=== PATIENT | female | born 1990 | race African-American/Black ===

== ENCOUNTER 2016-10-25 18:09 | Emergency (ER) | payer OTHER ==
[~2016-10-25 18:09] MED LIST: ACET50TA PO; DIBU1OIN TOP; DOCU10CA PO; IBUP80TA PO; PRENTAB8 PO; UNISOM PO
[2016-10-25] MEDS ORDERED: dexameTHASONE 4 MG/ML 1ML VIAL (J1100) As Ordered ONE (18:50)
[2016-10-25] MEDS ORDERED: METOCLOPRAMIDE INJ 10MG/2ML VIAL (J2765) As Ordered ONE (18:50)
[2016-10-25] MEDS ORDERED: diphenhydrAMINE INJ 50MG/ML VIAL (J1200) As Ordered ONE (18:50)
[2016-10-25 19:02] LABS: BASO % 0.3 % (0.0-1.0); EOS # 0.1 K/mm3 (0.0-0.50); LARGE UNSTAINED CELL # 0.1 K/mm3 (0.0-0.4); LARGE UNSTAINED CELL % 1.3 % (0.0-4.0); LYMPH # 1.2 K/mm3 (1.5-6.5); LYMPH % 15.2 % (24.0-44.0); MEAN CORPUSCULAR HEMOGLOBIN 27.2 pg (27.0-33.0); MEAN CORPUSCULAR HGB CONC 33.4 g/dl (32.0-36.5); MEAN CORPUSCULAR VOLUME 81.3 fl (80.0-96.0); MONO # 0.4 K/mm3 (0.0-0.8); MONO % 5.5 % (0.0-5.0); NEUTROPHILS # 5.9 K/mm3 (1.8-7.7); NEUTROPHILS % 76.8 % (36.0-66.0); PLATELET COUNT, AUTOMATED 309 k/mm3 (150-450); RED CELL DISTRIBUTION WIDTH 12.4 % (11.5-14.5); WHITE BLOOD COUNT 7.7 K/mm3 (4.0-10.0)
[2016-10-25 19:19] LABS: ANION GAP 8 MEQ/L (8-16); BLOOD UREA NITROGEN 11 MG/DL (7-18); CALCIUM LEVEL 8.5 MG/DL (8.5-10.1); CARBON DIOXIDE LEVEL 29 MEQ/L (21-32); CHLORIDE LEVEL 102 MEQ/L (98-107); CREATININE FOR GFR 0.86 MG/DL (0.55-1.02); GLOMERULAR FILTRATION RATE > 60.0 (>60); GLUCOSE, FASTING 93 MG/DL (70-105); POTASSIUM SERUM 3.9 MEQ/L (3.5-5.1); SODIUM LEVEL 139 MEQ/L (136-145)
[2016-10-25 19:26] LABS: ERYTHROCYTE SEDIMENTATION RATE 11 mm/hr (0-20)
--- NOTE | 2016-10-25 19:40 | ECGEPIP ---
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
--- NOTE | 2016-10-25 20:10 | REPUSA ---
CT of the head Clinical history: Headache. Technique: Multiple axial CT images were obtained through the head without administration of contrast . Findings: The ventricles and sulci are symmetric bilaterally. There is no evidence of acute hemorrhag e or infarct. There is no midline shift, mass effect, or extra-axial fluid collection. The osseous st ructures are unremarkable. The visualized paranasal sinuses and mastoid air cells are clear. Impression: Negative study.
--- NOTE | 2016-10-25 20:38 | EDDOCDS ---
Physician Documentation [facility] Name: Argentina Camacho Age: 26 yrs Sex: Female : 1990 Arrival Date: 10/25/2016 Time: 18:09 Bed I4 / M4 Private MD: Disposition: 10/25/16 20:29 Discharged to Home/Self Care. Impression: Headache, Dizziness and giddiness, Nausea. - Condition is Stable. - Discharge Instructions: Dizziness, General Headache Without Cause, Nausea, Adult. - Prescriptions for Reglan 10 mg Oral Tablet - take 1 tablet by ORAL route every 6 hours take 30 minutes before meals and at bedtime; 20 tablet. - Medication Reconciliation, Local Pharmacy Hours form. - Follow up: NOÉ Avila; When: Tomorrow; Reason: Recheck today's complaints, Continuance of care. - Problem is new. - Symptoms have improved. - Notes: USE MEDICATION INSTRUCTED, FOLLOW UP WITH YOUR DOCTOR TOMORROW, RETURN TO THE ER IF THE SYMPTOMS WORSEN OR BECOME CONCERNING Historical: - Allergies: Percocet (Anaphylaxis); PENICILLINS (Unknown); - Home Meds: 1. Tylenol 325 mg Oral tab every 4-6 hours - PMHx: none; - PSHx: none; - Social history: Smoking status: Patient states former smoker of tobacco. No barriers to communication noted, The patient speaks fluent Lao. - Family history: Not pertinent. - : The pt / caregiver states he / she is not on anticoagulants. Home medication list is obtained from the patient. - Exposure Risk Screening:: None identified. 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 6 in. (167.64 cm); Pain 7/10; 19:54 BP 122 / 86 Supine; Pulse 100; Resp 18; Pulse Ox 95% on R/A; jmb 19:54 BP 117 / 79 Sitting; Pulse 102; Resp 18; Pulse Ox 96% on R/A; jmb 19:54 BP 144 / 74 Standing; Pulse 104; Resp 18; Pulse Ox 96% on R/A; jmb 20:30 Temp 99.4(O); nb2 18:11 Body Mass Index 40.03 (112.49 kg, 167.64 cm) bnb MDM: 18:22 ECG WITH READING ER PHYS+CARDIAG ordered. EDMS 18:43 IV Saline Lock ordered. ck7 18:43 Metoclopramide 10 mg IV at 40 mg/hr once over 15 mins ordered. ck7 18:43 Dexamethasone 8 mg IV at bolus once ordered. ck7 18:43 diphenhydrAMINE 25 mg IVP once ordered. ck7 18:43 NS 0.9% 1000 ml IV at bolus once ordered. ck7 18:43 Orthostatic VS ordered. ck7 18:44 CT Head Without Contrast Ordered. EDMS 18:45 CBC with Diff Ordered. EDMS 18:45 MED Profile Ordered. EDMS 18:45 ESR Ordered. EDMS 18:45 CRP Ordered. EDMS 19:26 [facility] Payment Agreement was scanned into Go[employer] and attached to record. jp5 19:26 Financial registration complete. jp5 19:54 CBC with Diff Reviewed. ck7 19:54 CRP Reviewed. ck7 19:54 MED Profile Reviewed. ck7 19:54 ESR Reviewed. ck7 20:31 EKG-ADULT Reviewed. ck7 20:31 CT Head Without Contrast Reviewed. ck7 Administered Medications: 18:59 Drug: Metoclopramide 10 mg [metoclopramide 5 mg/mL injection solution] Route: IV; Rate: ck1 40 mg/hr; Infused Over: 15 mins; Site: right antecubital; 19:27 Follow up: Response: No Adverse Reaction [facility] 18:59 Drug: Dexamethasone 8 mg [dexamethasone 4 mg/mL injection solution] Route: IV; Rate: ck1 bolus; Site: right antecubital; 19:27 Follow up: Response: No Adverse Reaction [facility] 18:59 Drug: diphenhydrAMINE 25 mg [diphenhydramine 50 mg/mL injection solution (0.5 mL)] ck1 Route: IVP; Site: right antecubital; 19:27 Follow up: Response: No Adverse Reaction [facility] 18:59 Drug: NS 0.9% 1000 ml [sodium chloride 0.9 % intravenous solution] Route: IV; Rate: ck1 bolus; Site: right antecubital; Signatures: Dispatcher Med[employer] EDMS Mykesheridanj,Karen,RN RN rs3 Cabrera Sarabia, RPA-C RPA-Cck7 Red DeeRN RN Fifi Davalos jp5 Aubrie Collier RN ck1 The chart was reviewed and I authenticate all verbal orders and agree with the evaluation and treatment provided.Attachments: 19:26 [facility] Payment Agreement jp5 MTDD
--- NOTE | 2016-10-25 20:39 | EDDOCDS ---
Nurse's Notes [facility] Name: Kishan May Age: 26 yrs Sex: Female : 1990 Arrival Date: 10/25/2016 Time: 18:09 Bed I4 / M4 Private MD: Diagnosis: Headache;Dizziness and giddiness;Nausea Presentation: 10/25 18:15 Presenting complaint: Patient states: headache, lighthededness on and off for 2 months. rs3 Primary care provider ruled out miscarriage. was going for more tests. did not get to Wednesday's appt with primary. headache and vomiting is getting worse progressively. Adult Sepsis Screening: The patient does not have new or worsening altered mentation. Patient's respiratory rate is less than 22. Systolic blood pressure is greater than 100. Patient has a qSOFA score of 0- Negative Sepsis Screen. Suicide/Homicide risk assessment- the patient denies having any suicidal and/or homicidal ideations and does not present with any other emotional, behavioral or mental health complaints. Status: The patient is a dependent. Transition of care: patient was not received from another setting of care. 18:15 Acuity: DEB Level 3 rs3 18:15 Method Of Arrival: Walkin/Carried/Asstd rs3 Triage Assessment: 18:19 General: Appears in no apparent distress. Pain: Location: forehead. Pt Declines HIV rs3 testing. 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 Tylenol 325 mg Oral tab every 4-6 hours - PMHx: none; - PSHx: none; - Social history: Smoking status: Patient states former smoker of tobacco. No barriers to communication noted, The patient speaks fluent Greek. - Family history: Not pertinent. - : The pt / caregiver states he / she is not on anticoagulants. Home medication list is obtained from the patient. - Exposure Risk Screening:: None identified. Screenin:56 Screening information is obtained from the patient. Fall risk: No risks identified. jmb Fall risk: No risks identified. Assistance ADL's: requires no assistance with activities of daily living. Abuse/DV Screen: The patient / caregiver reports he/she is: not in a situation that causes fear, pain or injury. Nutritional screening: No deficits noted. home support is adequate. 20:35 Advance Directives: Currently, there is no health care proxy. There is no active DNR jmb order. There is no living will. There is no Power of Accreditation Manager. Assessment: 18:56 General: Appears in no apparent distress, Behavior is appropriate for age, cooperative. jmb Pain: Location: abdomen Pain currently is 6 out of 10 on a pain scale. Neurological: Level of Consciousness is awake, alert, obeys commands, Oriented to person, place, time, Speech is normal, Facial symmetry appears normal, Facial symmetry: tongue is midline. Cardiovascular: Capillary refill < 3 seconds Heart tones S1 S2 present Pulses are all present. Respiratory: Airway is patent Respiratory effort is even, unlabored, Respiratory pattern is regular, symmetrical, Breath sounds are diminished bilaterally. GI: Abdomen is obese, Bowel sounds present X 4 quads. hypoactive in right upper quadrant, left upper quadrant, right lower quadrant and left lower quadrant Abd is soft X 4 quads. Derm: Skin is pink, warm & dry. Musculoskeletal: Range of motion intact in all extremities. 19:23 General: Appears in no apparent distress, comfortable, Behavior is appropriate for age, jmb cooperative, Patient laying on stretcher, appears comfortable. NO voiced complaints at this time. Family at bedside. . Neurological: Level of Consciousness is awake, alert, obeys commands, Oriented to person, place, time. Respiratory: Airway is patent Respiratory effort is even, unlabored, Respiratory pattern is regular, symmetrical. 20:21 General: Appears in no apparent distress, comfortable, Behavior is appropriate for age, jmb cooperative. Neurological: Level of Consciousness is awake, alert, obeys commands, Oriented to person, place, time. Respiratory: Airway is patent Respiratory effort is even, unlabored, Respiratory pattern is regular, symmetrical. 20:35 General: Patient instructed on discharge instructions. Patient asked if there were any b questions regarding discharge, patient stated no. IV discontinued per hospital policy. Patient signed discharge instructions. Patient discharged in stable condition. . Vital Signs: 18:11 BP 171 / 86 RA Sitting (auto/lg); Pulse 115; Resp 18; Temp 97.6; Pulse Ox 98% on R/A; bnb Weight 112.49 kg; Height 5 ft. 6 in. (167.64 cm); Pain 7/10; 19:54 BP 122 / 86 Supine; Pulse 100; Resp 18; Pulse Ox 95% on R/A; jmb 19:54 BP 117 / 79 Sitting; Pulse 102; Resp 18; Pulse Ox 96% on R/A; jmb 19:54 BP 144 / 74 Standing; Pulse 104; Resp 18; Pulse Ox 96% on R/A; jmb 20:30 Temp 99.4(O); nb2 18:11 Body Mass Index 40.03 (112.49 kg, 167.64 cm) [facility] Vitals: 18:11 Log In Time: October 25, 2016 at 17:09. [facility] ED Course: 18:10 Patient visited by Dolores Dee PCA. bnb 18:10 Patient moved to Waiting bnb 18:14 Patient moved to Pre RCE bnb 18:19 Triage Initiated rs3 18:20 [facility] Sarab[facility] ck7 18:20 Patient moved to Triage 3 rs3 18:21 Alicia Sinha MD is Attending Physician. ck7 18:21 Patient visited by Cabrera Sarabia RPA-C. ck7 18:34 EKG done. (by ED staff). Reviewed by Cabrera BLACK. jjr 18:44 Patient moved to I4 / M4 ar3 18:56 The patient / caregiver is instructed regarding the plan of care and ED course. b 18:56 CRP Sent. b 18:56 ESR Sent. b 18:56 MED Profile Sent. b 18:56 CBC with Diff Sent. b 18:56 Inserted saline lock: 20 gauge in right antecubital area and blood collected. The [facility] patient tolerated the procedure well. 18:58 Patient visited by Red Dee RN. jmkeiry 19:24 Patient visited by Red Dee RN. jmb 19:26 [facility] Payment Agreement was scanned into Clear[employer] and attached to record. jp5 19:54 Patient visited by Cabrera Sarabia RPA-C. ck7 20:15 EKG-ADULT Returned. EDMS 20:17 CT Head Without Contrast Returned. EDMS 20:21 Patient visited by Red Dee,MAURY. jmb 20:29 NOÉ Avila is Referral Physician. ck7 20:31 Patient visited by Ashleigh Boss. nb2 20:35 Discontinued lock intact, bleeding controlled, pressure dressing applied, No jmb redness/swelling at site. No procedures done that require assistance. Administered Medications: 18:59 Drug: Metoclopramide 10 mg [metoclopramide 5 mg/mL injection solution] Route: IV; Rate: ck1 40 mg/hr; Infused Over: 15 mins; Site: right antecubital; 19:27 Follow up: Response: No Adverse Reaction [facility] 18:59 Drug: Dexamethasone 8 mg [dexamethasone 4 mg/mL injection solution] Route: IV; Rate: ck1 bolus; Site: right antecubital; 19:27 Follow up: Response: No Adverse Reaction [facility] 18:59 Drug: diphenhydrAMINE 25 mg [diphenhydramine 50 mg/mL injection solution (0.5 mL)] ck1 Route: IVP; Site: right antecubital; 19:27 Follow up: Response: No Adverse Reaction [facility] 18:59 Drug: NS 0.9% 1000 ml [sodium chloride 0.9 % intravenous solution] Route: IV; Rate: ck1 bolus; Site: right antecubital; Order Results: Lab Order: CBC with Diff; SPEC'M 10/25/16 18:55 Test: WHITE BLOOD COUNT; Value: 7.7; Range: 4.0-10.0; Units: K/mm3; Status: F Test: RED BLOOD COUNT; Value: 5.18; Range: 4.00-5.40; Units: M/mm3; Status: F Test: HEMOGLOBIN; Value: 14.1; Range: 12.0-16.0; Units: g/dl; Status: F Test: HEMATOCRIT; Value: 42.1; Range: 36.0-47.0; Units: %; Status: F Test: MEAN CORPUSCULAR VOLUME; Value: 81.3; Range: 80.0-96.0; Units: fl; Status: F Test: MEAN CORPUSCULAR HEMOGLOBIN; Value: 27.2; Range: 27.0-33.0; Units: pg; Status: F Test: MEAN CORPUSCULAR HGB CONC; Value: 33.4; Range: 32.0-36.5; Units: g/dl; Status: F Test: RED CELL DISTRIBUTION WIDTH; Value: 12.4; Range: 11.5-14.5; Units: %; Status: F Test: PLATELET COUNT, AUTOMATED; Value: 309; Range: 150-450; Units: k/mm3; Status: F Test: NEUTROPHILS %; Value: 76.8; Range: 36.0-66.0; Abnormal: Above high normal; Units: %; Status: F Test: LYMPH %; Value: 15.2; Range: 24.0-44.0; Abnormal: Below low normal; Units: %; Status: F Test: MONO %; Value: 5.5; Range: 0.0-5.0; Abnormal: Above high normal; Units: %; Status: F Test: EOS %; Value: 1.0; Range: 0.0-3.0; Units: %; Status: F Test: BASO %; Value: 0.3; Range: 0.0-1.0; Units: %; Status: F Test: LARGE UNSTAINED CELL %; Value: 1.3; Range: 0.0-4.0; Units: %; Status: F Test: NEUTROPHILS #; Value: 5.9; Range: 1.8-7.7; Units: K/mm3; Status: F Test: LYMPH #; Value: 1.2; Range: 1.5-6.5; Abnormal: Below low normal; Units: K/mm3; Status: F Test: MONO #; Value: 0.4; Range: 0.0-0.8; Units: K/mm3; Status: F Test: EOS #; Value: 0.1; Range: 0.0-0.50; Units: K/mm3; Status: F Test: BASO #; Value: 0.0; Range: 0.0-0.2; Units: K/mm3; Status: F Test: LARGE UNSTAINED CELL #; Value: 0.1; Range: 0.0-0.4; Units: K/mm3; Status: F Lab Order: MED Profile; [facility] 10/25/16 18:55 Test: GLUCOSE, FASTING; Value: 93; Range: 70-105; Units: MG/DL; Status: F Test: BLOOD UREA NITROGEN; Value: 11; Range: 7-18; Units: MG/DL; Status: F Test: CREATININE FOR GFR; Value: 0.86; Range: 0.55-1.02; Units: MG/DL; Status: F Test: GLOMERULAR FILTRATION RATE; Value: > 60.0; Range: >60; Status: F Test: SODIUM LEVEL; Value: 139; Range: 136-145; Units: MEQ/L; Status: F Test: POTASSIUM SERUM; Value: 3.9; Range: 3.5-5.1; Units: MEQ/L; Status: F Test: CHLORIDE LEVEL; Value: 102; Range: 98-107; Units: MEQ/L; Status: F Test: CARBON DIOXIDE LEVEL; Value: 29; Range: 21-32; Units: MEQ/L; Status: F Test: ANION GAP; Value: 8; Range: 8-16; Units: MEQ/L; Status: F Test: CALCIUM LEVEL; Value: 8.5; Range: 8.5-10.1; Units: MG/DL; Status: F Test Note: ; Units are mL/min/1.73 m2 Chronic Kidney Disease Staging per NKF: Stage I & II GFR >=60 Normal to Mildly Decreased Stage III GFR 30-59 Moderately Decreased Stage IV GFR 15-29 Severely Decreased Stage V GFR <15 Very Little GFR Left ESRD GFR <15 on DIRECTOR OF SUPPLY CHAIN Lab Order: ESR; SPEC'M 10/25/16 18:55 Test: ERYTHROCYTE SEDIMENTATION RATE; Value: 11; Range: 0-20; Units: mm/hr; Status: F Lab Order: CRP; SPEC'M 10/25/16 18:55 Test: C REACTIVE PROTEIN QUANTITATIV; Value: 0.61; Range: 0.00-0.30; Abnormal: Above high normal; Units: MG/DL; Status: F Radiology Order: EKG-ADULT Test: EKG-ADULT REASON FOR EXAMINATION: Chest Pain; Stationary ECG Study; [facility] - ED; ; Test Date: 2016-10-25; Pat Name: KISHAN MAY Department:; Room: -; Gender: F Rn Telephonic: ; : 1990 Requested By: Cabrera Ruiz PA-C; Order Number: [id number] Amy MD: Alicia Sinha; Measurements; Intervals [place]; Rate: 109 P: 26; [place]: 162 QRS: 60; QRSD: 108 T: 24; QT: 318; QTc: 428; Interpretive Statements; SINUS TACHYCARDIA; POSSIBLE LEFT ATRIAL ENLARGEMENT; INCOMPLETE RIGHT BUNDLE BRANCH BLOCK; ABNORMAL RHYTHM ECG; ; Electronically Signed On 10-25-2016 19:39:56 EST by Alicia Sinha; Radiology Order: CT Head Without Contrast Test: CT Head Without Contrast REASON FOR EXAMINATION: HEADACHE, DIZZINESS, R/O BLEED; ; CT of the head; Clinical history: Headache.; Technique: Multiple axial CT images were obtained through the head without administration of contrast; .; Findings: The ventricles and sulci are symmetric bilaterally. There is no evidence of acute hemorrhag; e or infarct. There is no midline shift, mass effect, or extra-axial fluid collection. The osseous st; ructures are unremarkable. The visualized paranasal sinuses and mastoid air cells are clear.; Impression: Negative study.; ; Outcome: 20:29 Discharge ordered by Provider. ck7 20:35 Discharge Assessment: Patient awake, alert and oriented x 3. No cognitive and/or jmb functional deficits noted. Patient verbalized understanding of disposition instructions. Patient awake and alert. obeys commands, Oriented to person, place and time. Patient verbalized understanding of disposition instructions. Patient has no functional deficits. patient administered narcotics - no. The following High Risk Discharge criteria are identified: None. Discharged to home ambulatory, with family. Condition: stable Condition: improved. Discharge instructions given to patient, Instructed on discharge instructions, follow up and referral plans. medication usage, Demonstrated understanding of instructions, medications, Pt was receptive of discharge instructions/ teaching. Prescriptions given X 1. CT Study completed. Property sent home with patient. 20:37 Patient left the ED. [email or web address] Signatures: Dispatcher Med[employer] EDMS Aubrie CollierRN RN ck1 Paz Barcenas RN RN jjr Soosairaj, Rosemary, RN RN rs3 Roseann Goldman, STEWARD/STEWARDESS TOURIST CLASS STEWARD/STEWARDESS TOURIST CLASS ar3 Cabrera Sarabia, RPA-C RPA-Cck7 Red DeeRN Fifi Macdonald Nicole nb2 Becker, Brittney, STEWARD/STEWARDESS TOURIST CLASS STEWARD/STEWARDESS TOURIST CLASS bnb DEDRAD
--- NOTE | 2016-10-27 21:38 | EDDOCDS ---
Nurse's Notes [facility] Name: Argentina May Age: 26 yrs Sex: Female : 1990 Arrival Date: 10/25/2016 Time: 18:09 Bed I4 / M4 Private MD: Diagnosis: Headache;Dizziness and giddiness;Nausea Presentation: 10/25 18:15 Presenting complaint: Patient states: headache, lighthededness on and off for 2 months. rs3 Primary care provider ruled out miscarriage. was going for more tests. did not get to Wednesday's appt with primary. headache and vomiting is getting worse progressively. Adult Sepsis Screening: The patient does not have new or worsening altered mentation. Patient's respiratory rate is less than 22. Systolic blood pressure is greater than 100. Patient has a qSOFA score of 0- Negative Sepsis Screen. Suicide/Homicide risk assessment- the patient denies having any suicidal and/or homicidal ideations and does not present with any other emotional, behavioral or mental health complaints. Status: The patient is a dependent. Transition of care: patient was not received from another setting of care. 18:15 Acuity: DEB Level 3 rs3 18:15 Method Of Arrival: Walkin/Carried/Asstd rs3 Triage Assessment: 18:19 General: Appears in no apparent distress. Pain: Location: forehead. Pt Declines HIV rs3 testing. 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 Tylenol 325 mg Oral tab every 4-6 hours - PMHx: none; - PSHx: none; - Social history: Smoking status: Patient states former smoker of tobacco. No barriers to communication noted, The patient speaks fluent Serbian. - Family history: Not pertinent. - : The pt / caregiver states he / she is not on anticoagulants. Home medication list is obtained from the patient. - Exposure Risk Screening:: None identified. Screenin:56 Screening information is obtained from the patient. Fall risk: No risks identified. jmb Fall risk: No risks identified. Assistance ADL's: requires no assistance with activities of daily living. Abuse/DV Screen: The patient / caregiver reports he/she is: not in a situation that causes fear, pain or injury. Nutritional screening: No deficits noted. home support is adequate. 20:35 Advance Directives: Currently, there is no health care proxy. There is no active DNR jmb order. There is no living will. There is no Power of Supervisor [employer]. Assessment: 18:56 General: Appears in no apparent distress, Behavior is appropriate for age, cooperative. jmb Pain: Location: abdomen Pain currently is 6 out of 10 on a pain scale. Neurological: Level of Consciousness is awake, alert, obeys commands, Oriented to person, place, time, Speech is normal, Facial symmetry appears normal, Facial symmetry: tongue is midline. Cardiovascular: Capillary refill < 3 seconds Heart tones S1 S2 present Pulses are all present. Respiratory: Airway is patent Respiratory effort is even, unlabored, Respiratory pattern is regular, symmetrical, Breath sounds are diminished bilaterally. GI: Abdomen is obese, Bowel sounds present X 4 quads. hypoactive in right upper quadrant, left upper quadrant, right lower quadrant and left lower quadrant Abd is soft X 4 quads. Derm: Skin is pink, warm & dry. Musculoskeletal: Range of motion intact in all extremities. 19:23 General: Appears in no apparent distress, comfortable, Behavior is appropriate for age, jmb cooperative, Patient laying on stretcher, appears comfortable. NO voiced complaints at this time. Family at bedside. . Neurological: Level of Consciousness is awake, alert, obeys commands, Oriented to person, place, time. Respiratory: Airway is patent Respiratory effort is even, unlabored, Respiratory pattern is regular, symmetrical. 20:21 General: Appears in no apparent distress, comfortable, Behavior is appropriate for age, jmb cooperative. Neurological: Level of Consciousness is awake, alert, obeys commands, Oriented to person, place, time. Respiratory: Airway is patent Respiratory effort is even, unlabored, Respiratory pattern is regular, symmetrical. 20:35 General: Patient instructed on discharge instructions. Patient asked if there were any b questions regarding discharge, patient stated no. IV discontinued per hospital policy. Patient signed discharge instructions. Patient discharged in stable condition. . Vital Signs: 18:11 BP 171 / 86 RA Sitting (auto/lg); Pulse 115; Resp 18; Temp 97.6; Pulse Ox 98% on R/A; bnb Weight 112.49 kg; Height 5 ft. 6 in. (167.64 cm); Pain 7/10; 19:54 BP 122 / 86 Supine; Pulse 100; Resp 18; Pulse Ox 95% on R/A; jmb 19:54 BP 117 / 79 Sitting; Pulse 102; Resp 18; Pulse Ox 96% on R/A; jmb 19:54 BP 144 / 74 Standing; Pulse 104; Resp 18; Pulse Ox 96% on R/A; jmb 20:30 Temp 99.4(O); nb2 18:11 Body Mass Index 40.03 (112.49 kg, 167.64 cm) [facility] Vitals: 18:11 Log In Time: October 25, 2016 at 17:[address] [facility] ED Course: 18:10 Patient visited by Dolores Dee PCA. bnb 18:10 Patient moved to Waiting bnb 18:14 Patient moved to Pre RCE bnb 18:19 Triage Initiated rs3 18:20 [facility] ck7 18:20 Patient moved to Triage 3 rs3 18:21 Alicia Sinha MD is Attending Physician. ck7 18:21 Patient visited by Cabrera Sarabia RPA-C. ck7 18:34 EKG done. (by ED staff). Reviewed by Cabrera BLACK. jjr 18:44 Patient moved to I4 / M4 ar3 18:56 The patient / caregiver is instructed regarding the plan of care and ED course. b 18:56 CRP Sent. b 18:56 ESR Sent. b 18:56 MED Profile Sent. b 18:56 CBC with Diff Sent. b 18:56 Inserted saline lock: 20 gauge in right antecubital area and blood collected. The [facility] patient tolerated the procedure well. 18:58 Patient visited by Red Dee RN. jmkeiry 19:24 Patient visited by Red Dee RN. jmb 19:26 [facility] Payment Agreement was scanned into [employer] and attached to record. jp5 19:54 Patient visited by Cabrera Sarabia RPA-C. ck7 20:15 EKG-ADULT Returned. EDMS 20:17 CT Head Without Contrast Returned. EDMS 20:21 Patient visited by Red Dee,MAURY. jmb 20:29 [place] [facility] is Referral Physician. ck7 20:31 Patient visited by Ashleigh Boss. nb2 20:35 Discontinued lock intact, bleeding controlled, pressure dressing applied, No jmb redness/swelling at site. No procedures done that require assistance. 22:52 Patient name changed from Argentina\S\\S\Hopper\S\ to Argentina\S\Gricelda\S\Hopper. EDMS 10/26 12:09 T-Sheet-- Draft Copy was scanned into [employer] and attached to record. gb 12:09 ECG/EKG was scanned into [employer] and attached to record. gb Administered Medications: 10/25 18:59 Drug: Metoclopramide 10 mg [metoclopramide 5 mg/mL injection solution] Route: IV; Rate: ck1 40 mg/hr; Infused Over: 15 mins; Site: right antecubital; 19:27 Follow up: Response: No Adverse Reaction [facility] 18:59 Drug: Dexamethasone 8 mg [dexamethasone 4 mg/mL injection solution] Route: IV; Rate: ck1 bolus; Site: right antecubital; 19:27 Follow up: Response: No Adverse Reaction [facility] 18:59 Drug: diphenhydrAMINE 25 mg [diphenhydramine 50 mg/mL injection solution (0.5 mL)] ck1 Route: IVP; Site: right antecubital; 19:27 Follow up: Response: No Adverse Reaction [facility] 18:59 Drug: NS 0.9% 1000 ml [sodium chloride 0.9 % intravenous solution] Route: IV; Rate: ck1 bolus; Site: right antecubital; Order Results: Lab Order: CBC with Diff; SPEC'M 10/25/16 18:55 Test: WHITE BLOOD COUNT; Value: 7.7; Range: 4.0-10.0; Units: K/mm3; Status: F Test: RED BLOOD COUNT; Value: 5.18; Range: 4.00-5.40; Units: M/mm3; Status: F Test: HEMOGLOBIN; Value: 14.1; Range: 12.0-16.0; Units: g/dl; Status: F Test: HEMATOCRIT; Value: 42.1; Range: 36.0-47.0; Units: %; Status: F Test: MEAN CORPUSCULAR VOLUME; Value: 81.3; Range: 80.0-96.0; Units: fl; Status: F Test: MEAN CORPUSCULAR HEMOGLOBIN; Value: 27.2; Range: 27.0-33.0; Units: pg; Status: F Test: MEAN CORPUSCULAR HGB CONC; Value: 33.4; Range: 32.0-36.5; Units: g/dl; Status: F Test: RED CELL DISTRIBUTION WIDTH; Value: 12.4; Range: 11.5-14.5; Units: %; Status: F Test: PLATELET COUNT, AUTOMATED; Value: 309; Range: 150-450; Units: k/mm3; Status: F Test: NEUTROPHILS %; Value: 76.8; Range: 36.0-66.0; Abnormal: Above high normal; Units: %; Status: F Test: LYMPH %; Value: 15.2; Range: 24.0-44.0; Abnormal: Below low normal; Units: %; Status: F Test: MONO %; Value: 5.5; Range: 0.0-5.0; Abnormal: Above high normal; Units: %; Status: F Test: EOS %; Value: 1.0; Range: 0.0-3.0; Units: %; Status: F Test: BASO %; Value: 0.3; Range: 0.0-1.0; Units: %; Status: F Test: LARGE UNSTAINED CELL %; Value: 1.3; Range: 0.0-4.0; Units: %; Status: F Test: NEUTROPHILS #; Value: 5.9; Range: 1.8-7.7; Units: K/mm3; Status: F Test: LYMPH #; Value: 1.2; Range: 1.5-6.5; Abnormal: Below low normal; Units: K/mm3; Status: F Test: MONO #; Value: 0.4; Range: 0.0-0.8; Units: K/mm3; Status: F Test: EOS #; Value: 0.1; Range: 0.0-0.50; Units: K/mm3; Status: F Test: BASO #; Value: 0.0; Range: 0.0-0.2; Units: K/mm3; Status: F Test: LARGE UNSTAINED CELL #; Value: 0.1; Range: 0.0-0.4; Units: K/mm3; Status: F Lab Order: MED Profile; SPEC'M 10/25/16 18:55 Test: GLUCOSE, FASTING; Value: 93; Range: 70-105; Units: MG/DL; Status: F Test: BLOOD UREA NITROGEN; Value: 11; Range: 7-18; Units: MG/DL; Status: F Test: CREATININE FOR GFR; Value: 0.86; Range: 0.55-1.02; Units: MG/DL; Status: F Test: GLOMERULAR FILTRATION RATE; Value: > 60.0; Range: >60; Status: F Test: SODIUM LEVEL; Value: 139; Range: 136-145; Units: MEQ/L; Status: F Test: POTASSIUM SERUM; Value: 3.9; Range: 3.5-5.1; Units: MEQ/L; Status: F Test: CHLORIDE LEVEL; Value: 102; Range: 98-107; Units: MEQ/L; Status: F Test: CARBON DIOXIDE LEVEL; Value: 29; Range: 21-32; Units: MEQ/L; Status: F Test: ANION GAP; Value: 8; Range: 8-16; Units: MEQ/L; Status: F Test: CALCIUM LEVEL; Value: 8.5; Range: 8.5-10.1; Units: MG/DL; Status: F Test Note: ; Units are mL/min/1.73 m2 Chronic Kidney Disease Staging per NKF: Stage I & II GFR >=60 Normal to Mildly Decreased Stage III GFR 30-59 Moderately Decreased Stage IV GFR 15-29 Severely Decreased Stage V GFR <15 Very Little GFR Left ESRD GFR <15 on EMERGENCY COMMUNICATIONS DISPATCHER Lab Order: ESR; SPEC'M 10/25/16 18:55 Test: ERYTHROCYTE SEDIMENTATION RATE; Value: 11; Range: 0-20; Units: mm/hr; Status: F Lab Order: CRP; SPEC'M 10/25/16 18:55 Test: C REACTIVE PROTEIN QUANTITATIV; Value: 0.61; Range: 0.00-0.30; Abnormal: Above high normal; Units: MG/DL; Status: F Radiology Order: EKG-ADULT Test: EKG-ADULT REASON FOR EXAMINATION: Chest Pain; Stationary ECG Study; [facility] - ED; ; Test Date: 2016-10-25; Pat Name: ARGENTINA MAY Department:; Room: -; 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: ; : 1990 Requested By: Cabrera Ruiz PA-C; Order Number: [id number] Reading MD: Alicia Sinha; Measurements; Intervals [place]; Rate: 109 P: 26; ND: 162 QRS: 60; QRSD: 108 T: 24; QT: 318; QTc: 428; Interpretive Statements; SINUS TACHYCARDIA; POSSIBLE LEFT ATRIAL ENLARGEMENT; INCOMPLETE RIGHT BUNDLE BRANCH BLOCK; ABNORMAL RHYTHM ECG; ; Electronically Signed On 10-25-2016 19:39:56 EST by Alicia Sinha; Radiology Order: CT Head Without Contrast Test: CT Head Without Contrast REASON FOR EXAMINATION: HEADACHE, DIZZINESS, R/O BLEED; ; CT of the head; Clinical history: Headache.; Technique: Multiple axial CT images were obtained through the head without administration of contrast; .; Findings: The ventricles and sulci are symmetric bilaterally. There is no evidence of acute hemorrhag; e or infarct. There is no midline shift, mass effect, or extra-axial fluid collection. The osseous st; ructures are unremarkable. The visualized paranasal sinuses and mastoid air cells are clear.; Impression: Negative study.; ; Outcome: 20:29 Discharge ordered by Provider. ck7 20:35 Discharge Assessment: Patient awake, alert and oriented x 3. No cognitive and/or jmb functional deficits noted. Patient verbalized understanding of disposition instructions. Patient awake and alert. obeys commands, Oriented to person, place and time. Patient verbalized understanding of disposition instructions. Patient has no functional deficits. patient administered narcotics - no. The following High Risk Discharge criteria are identified: None. Discharged to home ambulatory, with family. Condition: stable Condition: improved. Discharge instructions given to patient, Instructed on discharge instructions, follow up and referral plans. medication usage, Demonstrated understanding of instructions, medications, Pt was receptive of discharge instructions/ teaching. Prescriptions given X 1. CT Study completed. Property sent home with patient. 20:37 Patient left the ED. jmb Signatures: Dispatcher [employer] EDMS Lucy Kebede, Reg Reg gb Mary-Yudi,Aubrie,RN RN ck1 Paz Barcenas, RN RN jjr Kenney,Karen,RN RN rs3 Roseann Goldman, JAVA DEVELOPER ARCHITECT JAVA DEVELOPER ARCHITECT ar3 Cornell, Cabrera, RPA-C RPA-Cck7 Red Dee,MAURY RN jmb Hermes, Fifi jp5 Ashleigh Boss2 Dolores Dee, JAVA DEVELOPER ARCHITECT JAVA DEVELOPER ARCHITECT bnb Chart Complete MTDD
--- NOTE | 2016-10-27 21:38 | EDDOCDS ---
Physician Documentation [facility] Name: Argentina Camacho Age: 26 yrs Sex: Female : 1990 Arrival Date: 10/25/2016 Time: 18:09 Bed I4 / M4 Private MD: Disposition: 10/25/16 20:29 Discharged to Home/Self Care. Impression: Headache, Dizziness and giddiness, Nausea. - Condition is Stable. - Discharge Instructions: Dizziness, General Headache Without Cause, Nausea, Adult. - Prescriptions for Reglan 10 mg Oral Tablet - take 1 tablet by ORAL route every 6 hours take 30 minutes before meals and at bedtime; 20 tablet. - Medication Reconciliation, Local Pharmacy Hours form. - Follow up: NOÉ Avila; When: Tomorrow; Reason: Recheck today's complaints, Continuance of care. - Problem is new. - Symptoms have improved. - Notes: USE MEDICATION INSTRUCTED, FOLLOW UP WITH YOUR DOCTOR TOMORROW, RETURN TO THE ER IF THE SYMPTOMS WORSEN OR BECOME CONCERNING Historical: - Allergies: Percocet (Anaphylaxis); PENICILLINS (Unknown); - Home Meds: 1. Tylenol 325 mg Oral tab every 4-6 hours - PMHx: none; - PSHx: none; - Social history: Smoking status: Patient states former smoker of tobacco. No barriers to communication noted, The patient speaks fluent Uzbek. - Family history: Not pertinent. - : The pt / caregiver states he / she is not on anticoagulants. Home medication list is obtained from the patient. - Exposure Risk Screening:: None identified. 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 6 in. (167.64 cm); Pain 7/10; 19:54 BP 122 / 86 Supine; Pulse 100; Resp 18; Pulse Ox 95% on R/A; jmb 19:54 BP 117 / 79 Sitting; Pulse 102; Resp 18; Pulse Ox 96% on R/A; jmb 19:54 BP 144 / 74 Standing; Pulse 104; Resp 18; Pulse Ox 96% on R/A; jmb 20:30 Temp 99.4(O); nb2 18:11 Body Mass Index 40.03 (112.49 kg, 167.64 cm) bnb MDM: 18:22 ECG WITH READING ER PHYS+CARDIAG ordered. EDMS 18:43 IV Saline Lock ordered. ck7 18:43 Metoclopramide 10 mg IV at 40 mg/hr once over 15 mins ordered. ck7 18:43 Dexamethasone 8 mg IV at bolus once ordered. ck7 18:43 diphenhydrAMINE 25 mg IVP once ordered. ck7 18:43 NS 0.9% 1000 ml IV at bolus once ordered. ck7 18:43 Orthostatic VS ordered. ck7 18:44 CT Head Without Contrast Ordered. EDMS 18:45 CBC with Diff Ordered. EDMS 18:45 MED Profile Ordered. EDMS 18:45 ESR Ordered. EDMS 18:45 CRP Ordered. EDMS 19:26 [facility] Payment Agreement was scanned into [employer] and attached to record. jp5 19:26 Financial registration complete. jp5 19:54 CBC with Diff Reviewed. ck7 19:54 CRP Reviewed. ck7 19:54 MED Profile Reviewed. ck7 19:54 ESR Reviewed. ck7 20:31 EKG-ADULT Reviewed. ck7 20:31 CT Head Without Contrast Reviewed. ck7 10/26 12:09 T-Sheet-- Draft Copy was scanned into [employer] and attached to record. gb 12:09 ECG/EKG was scanned into [employer] and attached to record. gb Administered Medications: 10/25 18:59 Drug: Metoclopramide 10 mg [metoclopramide 5 mg/mL injection solution] Route: IV; Rate: ck1 40 mg/hr; Infused Over: 15 mins; Site: right antecubital; 19:27 Follow up: Response: No Adverse Reaction [facility] 18:59 Drug: Dexamethasone 8 mg [dexamethasone 4 mg/mL injection solution] Route: IV; Rate: ck1 bolus; Site: right antecubital; 19:27 Follow up: Response: No Adverse Reaction [facility] 18:59 Drug: diphenhydrAMINE 25 mg [diphenhydramine 50 mg/mL injection solution (0.5 mL)] ck1 Route: IVP; Site: right antecubital; 19:27 Follow up: Response: No Adverse Reaction [facility] 18:59 Drug: NS 0.9% 1000 ml [sodium chloride 0.9 % intravenous solution] Route: IV; Rate: ck1 bolus; Site: right antecubital; Signatures: Dispatcher [employer] EDLucy Mace, Reg Reg gb Karen Moulton,RN RN rs3 Cabrera Sarabia, RPA-C RPA-Cck7 Red DeeRN RN Fifi Davalos jp5 Aubrie Collier RN ck1 The chart was reviewed and I authenticate all verbal orders and agree with the evaluation and treatment provided.Attachments: 19:26 [facility] Payment Agreement jp5 10/26 12:09 T-Sheet-- Draft Copy 12: ECG/EKG Chart Complete MTDD
--- NOTE | 2016-10-27 21:38 | EDDOCDS ---
Physician Documentation [facility] Name: Argentina Camacho Age: 26 yrs Sex: Female : 1990 Arrival Date: 10/25/2016 Time: 18:09 Bed I4 / M4 Private MD: Disposition: 10/25/16 20:29 Discharged to Home/Self Care. Impression: Headache, Dizziness and giddiness, Nausea. - Condition is Stable. - Discharge Instructions: Dizziness, General Headache Without Cause, Nausea, Adult. - Prescriptions for Reglan 10 mg Oral Tablet - take 1 tablet by ORAL route every 6 hours take 30 minutes before meals and at bedtime; 20 tablet. - Medication Reconciliation, Local Pharmacy Hours form. - Follow up: NOÉ Avila; When: Tomorrow; Reason: Recheck today's complaints, Continuance of care. - Problem is new. - Symptoms have improved. - Notes: USE MEDICATION INSTRUCTED, FOLLOW UP WITH YOUR DOCTOR TOMORROW, RETURN TO THE ER IF THE SYMPTOMS WORSEN OR BECOME CONCERNING Historical: - Allergies: Percocet (Anaphylaxis); PENICILLINS (Unknown); - Home Meds: 1. Tylenol 325 mg Oral tab every 4-6 hours - PMHx: none; - PSHx: none; - Social history: Smoking status: Patient states former smoker of tobacco. No barriers to communication noted, The patient speaks fluent Mongolian. - Family history: Not pertinent. - : The pt / caregiver states he / she is not on anticoagulants. Home medication list is obtained from the patient. - Exposure Risk Screening:: None identified. 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 6 in. (167.64 cm); Pain 7/10; 19:54 BP 122 / 86 Supine; Pulse 100; Resp 18; Pulse Ox 95% on R/A; jmb 19:54 BP 117 / 79 Sitting; Pulse 102; Resp 18; Pulse Ox 96% on R/A; jmb 19:54 BP 144 / 74 Standing; Pulse 104; Resp 18; Pulse Ox 96% on R/A; jmb 20:30 Temp 99.4(O); nb2 18:11 Body Mass Index 40.03 (112.49 kg, 167.64 cm) bnb MDM: 18:22 ECG WITH READING ER PHYS+CARDIAG ordered. EDMS 18:43 IV Saline Lock ordered. ck7 18:43 Metoclopramide 10 mg IV at 40 mg/hr once over 15 mins ordered. ck7 18:43 Dexamethasone 8 mg IV at bolus once ordered. ck7 18:43 diphenhydrAMINE 25 mg IVP once ordered. ck7 18:43 NS 0.9% 1000 ml IV at bolus once ordered. ck7 18:43 Orthostatic VS ordered. ck7 18:44 CT Head Without Contrast Ordered. EDMS 18:45 CBC with Diff Ordered. EDMS 18:45 MED Profile Ordered. EDMS 18:45 ESR Ordered. EDMS 18:45 CRP Ordered. EDMS 19:26 [facility] Payment Agreement was scanned into [employer] and attached to record. jp5 19:26 Financial registration complete. jp5 19:54 CBC with Diff Reviewed. ck7 19:54 CRP Reviewed. ck7 19:54 MED Profile Reviewed. ck7 19:54 ESR Reviewed. ck7 20:31 EKG-ADULT Reviewed. ck7 20:31 CT Head Without Contrast Reviewed. ck7 10/26 12:09 T-Sheet-- Draft Copy was scanned into [employer] and attached to record. gb 12:09 ECG/EKG was scanned into [employer] and attached to record. gb Administered Medications: 10/25 18:59 Drug: Metoclopramide 10 mg [metoclopramide 5 mg/mL injection solution] Route: IV; Rate: ck1 40 mg/hr; Infused Over: 15 mins; Site: right antecubital; 19:27 Follow up: Response: No Adverse Reaction [facility] 18:59 Drug: Dexamethasone 8 mg [dexamethasone 4 mg/mL injection solution] Route: IV; Rate: ck1 bolus; Site: right antecubital; 19:27 Follow up: Response: No Adverse Reaction [facility] 18:59 Drug: diphenhydrAMINE 25 mg [diphenhydramine 50 mg/mL injection solution (0.5 mL)] ck1 Route: IVP; Site: right antecubital; 19:27 Follow up: Response: No Adverse Reaction [facility] 18:59 Drug: NS 0.9% 1000 ml [sodium chloride 0.9 % intravenous solution] Route: IV; Rate: ck1 bolus; Site: right antecubital; Signatures: Dispatcher [employer] EDLucy Mace, Reg Reg gb Karen Moulton,RN RN rs3 Cabrera Sarabia, RPA-C RPA-Cck7 Red DeeRN RN Fifi Davalos jp5 Aubrie Collier RN ck1 The chart was reviewed and I authenticate all verbal orders and agree with the evaluation and treatment provided.Attachments: 19:26 [facility] Payment Agreement jp5 10/26 12:09 T-Sheet-- Draft Copy 12: ECG/EKG Chart Complete MTDD
== END 2016-10-25 20:37 | disposition home or self-care (01) ==
LOC: M ED 18:09
DX: R11.0 Nausea (principal); R42 Dizziness and giddiness; R51 Headache; Z87.891 Personal history of nicotine dependence; Z88.0 Allergy status to penicillin; Z88.5 Allergy status to narcotic agent
CPT/HCPCS: 36415; 70450; 80048; 85025; 85652; 86140; 93005; 96374; 96375; 99284; J1100; J1200; J2765

== ENCOUNTER 2017-03-10 12:06 | Emergency (ER) | payer OTHER ==
[~2017-03-10] VITALS: Ht 167.6 cm; Wt 116.2 kg
[2017-03-10] MEDS ORDERED: ALLE60TA69 PO (12:23)
[2017-03-10] MEDS ORDERED: RANI15TA PO (12:23)
[2017-03-10 14:10] LABS: MEAN CORPUSCULAR HEMOGLOBIN 27.8 pg (27.0-33.0); MEAN CORPUSCULAR HGB CONC 33.4 g/dl (32.0-36.5); MEAN CORPUSCULAR VOLUME 83.4 fl (80.0-96.0); RED CELL DISTRIBUTION WIDTH 13.1 % (11.5-14.5); WHITE BLOOD COUNT 13.9 K/mm3 (4.0-10.0)
--- NOTE | 2017-03-10 14:38 | REP ---
Clinical: Vaginal bleeding for dating and viability. Technique: Transabdominal and transvaginal first trimester obstetrical ultrasound with color Doppler evaluation. Findings: Single live early intrauterine is appreciated in breech presentation. motion was identified. The placenta is noted posteriorly, low-lying approximately 1.5 cm from the closed internal os, and grade zero. Vessels are identified coursing anterior to the closed internal os and the vasa previa versus funic presentation cannot be excluded. Cervix measures 3.7 cm in length and appears closed. Current biometrical measurements correspond to 15 weeks 0 days gestational age with estimated date of delivery 09/01/2017. heart rate equals 150 beats per minute. No gross abnormalities are identified. Impression: 1. Single live early intrauterine at 15 weeks 0 days gestational age. 2. Low-lying placenta 1.5 cm from the internal os. Vessels coursing and in front of the closed internal os noted differential diagnosis includes vasa previa and funic presentation and warrant followup. 3. Complete anatomical assessment should be performed and 19-20 weeks. Signed by Juan Carlos Moore MD 03/10/2017 02:29 P
[2017-03-10 14:47] LABS: ANION GAP 7 MEQ/L (8-16); BLOOD UREA NITROGEN 5 MG/DL (7-18); CALCIUM LEVEL 9.3 MG/DL (8.5-10.1); CARBON DIOXIDE LEVEL 28 MEQ/L (21-32); CHLORIDE LEVEL 103 MEQ/L (98-107); GLOMERULAR FILTRATION RATE > 60.0 (>60); GLUCOSE, FASTING 84 MG/DL (70-105); HCG, SERUM QUANTITATIVE 27690 MIU/ML; POTASSIUM SERUM 4.1 MEQ/L (3.5-5.1); SODIUM LEVEL 138 MEQ/L (136-145)
[2017-03-10 15:07] VITALS: BP 143/62
== END 2017-03-10 15:44 | disposition home or self-care (01) ==
LOC: M ED 12:06
DX: O20.0 Threatened abortion (principal); Z3A.14 14 weeks gestation of pregnancy

== ENCOUNTER 2017-04-28 11:15 | Emergency (ER) | payer OTHER ==
[~2017-04-28] VITALS: Ht 167.6 cm; Wt 113.6 kg
[~2017-04-28 11:15] MED LIST changes: +ALLE60TA69 PO; +RANI15TA PO
[2017-04-28] MEDS ORDERED: ERYTOIN8 OD (12:28)
[2017-04-28 12:32] VITALS: BP 123/83
== END 2017-04-28 12:35 | disposition home or self-care (01) ==
LOC: M ED 12:19
DX: O9A.212 Injury, poisoning and certain other consequences of external causes complicating pregnancy, second trimester (principal); S05.01XA Injury of conjunctiva and corneal abrasion without foreign body, right eye, initial encounter; Z3A.23 23 weeks gestation of pregnancy; W22.8XXA Striking against or struck by other objects, initial encounter; Y92.89 Other specified places as the place of occurrence of the external cause; Y93.89 Activity, other specified; Y99.9 Unspecified external cause status

== ENCOUNTER 2017-05-10 20:19 | Emergency (ER) | payer OTHER ==
[~2017-05-10] VITALS: Ht 167.6 cm; Wt 114.5 kg
[~2017-05-10 20:19] MED LIST changes: +ERYTOIN8 OD
[2017-05-10] MEDS ORDERED: NS 1,000 ML IV ONE (23:00)
[2017-05-10] MEDS ORDERED: ONDANSETRON 4MG/2ML VIAL (J2405) IV ONE (23:00)
[2017-05-10 23:13] LABS: BASO % 0.3 % (0.0-1.0); EOS # 0.2 K/mm3 (0.0-0.50); EOS % 2.3 % (0.0-3.0); LARGE UNSTAINED CELL # 0.1 K/mm3 (0.0-0.4); LARGE UNSTAINED CELL % 1.1 % (0.0-4.0); LYMPH # 2.5 K/mm3 (1.5-6.5); LYMPH % 23.5 % (24.0-44.0); MEAN CORPUSCULAR HEMOGLOBIN 28.1 pg (27.0-33.0); MEAN CORPUSCULAR HGB CONC 33.2 g/dl (32.0-36.5); MEAN CORPUSCULAR VOLUME 84.5 fl (80.0-96.0); MONO # 0.6 K/mm3 (0.0-0.8); MONO % 5.5 % (0.0-5.0); NEUTROPHILS # 6.8 K/mm3 (1.8-7.7); NEUTROPHILS % 67.2 % (36.0-66.0); PLATELET COUNT, AUTOMATED 316 k/mm3 (150-450); RED CELL DISTRIBUTION WIDTH 13.7 % (11.5-14.5); WHITE BLOOD COUNT 10.1 K/mm3 (4.0-10.0)
[2017-05-10 23:45] LABS: CONTROL LINE HCG INT CTR LINE PRESENT
[2017-05-10 23:56] LABS: ALBUMIN 2.8 GM/DL (3.2-5.2); ALBUMIN/GLOBULIN RATIO 0.65 (1.00-1.93); ALKALINE PHOSPHATASE 79 U/L (45-117); ALT/SGPT 16 U/L (12-78); AMYLASE 40 U/L (25-115); ANION GAP 8 MEQ/L (8-16); AST/SGOT 13 U/L (15-37); BILIRUBIN,DIRECT < 0.1 MG/DL (0.0-0.2); BILIRUBIN,TOTAL 0.2 MG/DL (0.2-1.0); BLOOD UREA NITROGEN 4 MG/DL (7-18); CALCIUM LEVEL 9.2 MG/DL (8.5-10.1); CARBON DIOXIDE LEVEL 24 MEQ/L (21-32); CHLORIDE LEVEL 105 MEQ/L (98-107); CREATININE FOR GFR 0.58 MG/DL (0.55-1.02); GLOMERULAR FILTRATION RATE > 60.0 (>60); GLUCOSE, FASTING 97 MG/DL (70-105); SODIUM LEVEL 137 MEQ/L (136-145); TOTAL PROTEIN 7.1 GM/DL (6.4-8.2)
[2017-05-11 00:35] LABS: HCG, SERUM QUANTITATIVE 19011 MIU/ML
--- NOTE | 2017-05-11 01:50 | REPUSA ---
CLINICAL HISTORY: Pelvic pain. TECHNIQUE: Realtime sonographic images were obtained in multiple projections via TA approach. The exa mination was performed by the pan operator and still images were submitted for interpretation. COMMENTS: Single, live intrauterine gestation. Breech presentation. motion was identified. heart rate 147 beats per minute. Posterior placenta. No evidence of placenta previa. No evidence of placental abruption. Amniotic fluid is within normal limits. Cervical length is 4.7 cm. The lateral ventricle measures 8.3 mm. Evaluation of the maternal adnexa and cul-de-sac regions reveal no abnormalities. Estimated gestation age is 23 weeks and 6 days. There has been appropriate interval growth since the prior exam. gender was documented estimated. Nuchal CORD was not seen. The previously low-lying placenta has resolved and there are no longer dilated vessels near the anus to the internal cervical os. IMPRESSION: Single, live intrauterine gestation. Thank you for your kind referral of this patient.
[2017-05-11 02:04] VITALS: BP 128/72
== END 2017-05-11 02:10 | disposition home or self-care (01) ==
LOC: M ED 20:19
DX: O99.89 Other specified diseases and conditions complicating pregnancy, childbirth and the puerperium (principal); R81 Glycosuria; Z3A.23 23 weeks gestation of pregnancy
CPT/HCPCS: 76816; 76817; 80048; 80076; 81001; 82150; 82550; 82553; 83690; 84702; 84703; 85025; 87086; 96374; 99283; J2405

== ENCOUNTER 2017-06-03 21:15 | Emergency (ER) | payer OTHER ==
[~2017-06-03] VITALS: Ht 167.6 cm; Wt 109.2 kg
[2017-06-03 21:15] VITALS: BP 129/70
== END 2017-06-03 21:51 | disposition home or self-care (01) ==
LOC: M ED 21:15
DX: R11.10 Vomiting, unspecified (principal); Z3A.20 20 weeks gestation of pregnancy

== ENCOUNTER 2017-06-03 21:30 | Outpatient (CLI) | payer OTHER ==
[~2017-06-03] VITALS: Ht 168.9 cm; Wt 109.1 kg
[2017-06-03 22:15] VITALS: BP 120/72
== END 2017-06-03 23:25 | disposition home or self-care (01) ==
LOC: M LDO 21:30
PROVIDERS: ATTEND Obstetrics & Gynecology
DX: O26.892 Other specified pregnancy related conditions, second trimester (principal); Z3A.26 26 weeks gestation of pregnancy; O21.9 Vomiting of pregnancy, unspecified; Z88.5 Allergy status to narcotic agent; Z88.0 Allergy status to penicillin

== ENCOUNTER 2017-08-17 19:49 | Outpatient (CLI) | payer OTHER ==
[~2017-08-17] VITALS: Ht 168.9 cm; Wt 104.8 kg
[2017-08-17 20:10] VITALS: BP 119/68
[2017-08-17] MEDS ORDERED: PRENTAB9 PO (20:17)
== END 2017-08-17 21:32 | disposition home or self-care (01) ==
LOC: M LDO 19:49
PROVIDERS: ATTEND Midwife
DX: O47.1 False labor at or after 37 completed weeks of gestation (principal); Z3A.37 37 weeks gestation of pregnancy; R51 Headache; E86.0 Dehydration; Z88.0 Allergy status to penicillin; Z88.5 Allergy status to narcotic agent; O99.283 Endocrine, nutritional and metabolic diseases complicating pregnancy, third trimester

== ENCOUNTER 2017-08-19 18:29 | Outpatient (CLI) | payer OTHER ==
[~2017-08-19] VITALS: Ht 167.6 cm; Wt 102.2 kg
[~2017-08-19 18:29] MED LIST changes: +PRENTAB9 PO
== END 2017-08-19 20:00 | disposition home or self-care (01) ==
LOC: M LDO 18:29
PROVIDERS: ATTEND Student in an Organized Health Care Education/Training Program
DX: O47.03 False labor before 37 completed weeks of gestation, third trimester (principal); Z3A.37 37 weeks gestation of pregnancy; Z88.0 Allergy status to penicillin; Z88.8 Allergy status to other drugs, medicaments and biological substances

== ENCOUNTER 2017-08-23 07:51 | Inpatient (IN) | payer OTHER ==
[2017-08-23] VITALS (8 sets, daily range): BP systolic 134–158; BP diastolic 60–88
[~2017-08-23] VITALS: Ht 168.9 cm; Wt 105.6 kg
[2017-08-23] MEDS: PRENATAL VITAMINS CHEWABLE TABLET PO SCH (09:00)
[2017-08-23 09:16] LABS: MEAN CORPUSCULAR HEMOGLOBIN 24.9 pg (27.0-33.0); MEAN CORPUSCULAR HGB CONC 32.1 g/dl (32.0-36.5); MEAN CORPUSCULAR VOLUME 77.8 fl (80.0-96.0); PLATELET COUNT, AUTOMATED 271 10^3/uL (150-450); RED CELL DISTRIBUTION WIDTH 13.9 % (11.5-14.5); WHITE BLOOD COUNT 7.6 10^3/uL (4.0-10.0)
--- NOTE | 2017-08-23 09:18 | HPEPDOC ---
Obstetrical History & Physical General Date of Admission Aug 23, 2017 at 08:30 History of Present Illness 27 yo presents to L&D Triage @ 38+1 by LMP([id number]) and 11+5 wks US on [id number] ambulatory with c/o SROM clear fluid @ 0715 today. Noted to be grossly ruptured. Denies DFM, CTX, and VB. GBS negative. Chief Complaint: LOF, term Information Provided By: Patient Age: 27 : 4 Term: 2 Pre-term: 0 Abortions: 1 Livin Care Care: Good Care Number of Visits: 6 Dating Final EDC: Sep 05, 2017 Final EDC for Daily Update: Sep 05, 2017 Final EDC by: LMP LMP: Nov 29, 2016 1st Trimester Date: Feb 17, 2017 Weeks + Days: 11.5 Estimated Date of Confinement: Sep 05, 2017 EGA at Admission: 38.1 Antepartum Course Diagnos(e)s 1. obesity 2. low lying placenta- RESOLVED Height (inches): 66.5 Pre- weight (lbs.): 259 Admission Weight (lbs.): 233 Change in Weight (lbs.): -26 Past Medical History Past Obstetrical History #1: Past Obstetrical History: Multigravida Date of Delivery: Apr 06, 2013 Gestation: 38 Type of Delivery: Spontaneous Vaginal Del. Sex of : Male Weight of (grams): 3515 Complications: No Past Obstetrical History #2: Past Obstetrical History: Multigravida Date of Delivery: Jul 16, 2015 Gestation: 40.5 Type of Delivery: Spontaneous Vaginal Del. Sex of Infant: Male Weight of Infant (grams): 4309 Complications: No [employer] History: Spontaneous (2011) Past Medical History Surgical History: Louisa teeth (2006) Family History Significant Family History: No pertinent family hx Social History Social history Spouse last deployment -2014 Marital Status: Family situation: Spouse/partner home Psychosocial History: No pertinent psych hx * Smoker: non-smoker Alcohol: Denies Drugs: denies Abuse Violence Screening Have you been hit/kicked/slapp: No Have you been sexually assault: No Imunizations Tdap status: current ([id number]) Influenza Status: declined Allergies Coded Allergies: Oxycodone (Verified Allergy, Severe, MOUTH SWELLS, 08/19/17) Penicillins (Verified Allergy, Unknown, 08/19/17) Medications Scheduled Multivitamins/ ( 27-0.8 mg) 1 Tab Tab, 1 TAB PO DAILY Physical Examination Physical Examination GENERAL: A & O x 3 BREAST: ABDOMEN: Gravid and non-tender to touch FETUS: VTX by Orb and SVE HEART RATE: Regular rate and rhythm, no m/r/g LUNGS: CTA EXTREMITIES: No edema. No clonus. DTRs +1 EFW 4300 gms- . Vital Signs/I&O Vital Signs Date Time Temp Pulse Resp B/P (MAP) Pulse Ox O2 Delivery O2 Flow Rate FiO2 08/23/17 08:12 98.9 89 18 140/88 (105) Nasal Cannula Laboratory Data CBC/BMP 10.1/11.7/35.3/313 Urine Culture: Other (mixed jahaira) Pertinent Laboratoy Data Blood Type: O+ RBC Antibody Screen: Negative HIV: Negative Hepatitis B: Negative Hepatitis C: Unknown Rapid Plasma Reagin: Nonreactive Rubella: Immune Varicella: Nonreactive (non-immune) Chlamydia/Gonorrhea: Negative Group B Streptococcus: Negative Quad Screen Test: Negative Cystic Fibrosis: Negative Glucose Tolerance Test: 129 Anatomy Ultrasound Ultrasound Date: Apr 21, 2017 Placenta Location: Posterior Normal Anatomy: Yes (unable to visualize some anatomy d/t body habitus) Placenta Previa: Yes Other Ultrasounds [id number]- previa resolved, 1331 grams, 70% [id number]- 2052 grams, 69% [id number] 2952, 73% Steroid Therapy Steroid Therapy: No Vaginal Examination Dilation: 4 cm Effacement: 75% Station: -2 Cervical Consistency: Soft Cervical Position: Middle Presentation: Cephalic presentation Position: Vertex (occiput) Assessment Heart Rate (FHR): 140 Variability: Moderate Accelerations: Positive Decelerations: None Tocometer Contractions: Yes Frequency: irregular (Q 2-5 min) Duration: less than 90 seconds Strength: palpated as moderate, resting tone palp/soft Multi-drug resistant Organism: No history of MDRO Assessment/Plan Assessment 27 yo @ 38+1 by LMP([id number]) and 11+5 wks US on [id number] grossly SROM clear fluid @ 0715 today. CAT I FHR tracing with irregular CTXs. GBS negative. Plan Admit and orient. 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 Diet: clear liquid GBS negative Labs and IV per unit protocol. Counseled on Pitocin IOL LR: Bolus 1000 mL prior to epidural, then at 125 mL/hr. Anticipate C-S as appropriate. WILLIAM BUTLER CNM Aug 23, 2017 09:18
[2017-08-23] MEDS ORDERED: FENTANYL 2MCG/ML ROPIVACAINE 0.2% IN 0.9% NACL 200ML IVBAG As Ordered ONE (09:37)
[2017-08-23] MEDS ORDERED: ONDANSETRON 4MG/2ML VIAL (J2405) IV PRN ×2 (10:00→11:00)
[2017-08-23] MEDS ORDERED: OXYTOCIN DRIP 30 UNITS in APPROPRIATE DILUENT 1 EA IV SCH ×2 (10:00→10:59)
[2017-08-23] MEDS ORDERED: REFRIGERATOR IV KEYS XX PRN (10:00)
[2017-08-23] MEDS ORDERED: diphenhydrAMINE INJ 50MG/ML VIAL (J1200) IV PRN (10:00)
[2017-08-23] MEDS ORDERED: ePHEDrine SULFATE 25 MG/5 ML(5MG/ML) SYRINGE IV PRN (10:00)
[2017-08-23] MEDS ORDERED: EPIDURAL/PCA KEYS XX PRN (10:00)
[2017-08-23] MEDS ORDERED: LACTATED RINGER'S 1000 ML IV PRN (10:00)
[2017-08-23] MEDS ORDERED: EPIDURAL COMMENT XX SCH (10:00)
[2017-08-23] MEDS ORDERED: FENTANYL/ROPIVACAINE/NACL BAG 200 ML EPIDURAL SCH (10:00)
[2017-08-23] MEDS ORDERED: NALOXONE INJ 0.4 MG/1 ML VIAL (J2310) IV PRN (10:00)
[2017-08-23] MEDS ORDERED: LR 1,000 ML IV SCH (10:00)
[2017-08-23] MEDS ORDERED: DIBUCAINE 1% OINTMENT 30GM TOP PRN (11:00)
[2017-08-23] MEDS ORDERED: PROMETHAZINE 25 MG TAB PO PRN (11:00)
[2017-08-23] MEDS ORDERED: ANUSOL HC CREAM 30GM TOP PRN (11:00)
[2017-08-23] MEDS ORDERED: IBUPROFEN 800 MG TAB PO PRN (11:00)
[2017-08-23] MEDS ORDERED: DOCUSATE SODIUM 100 MG CAP PO PRN (11:00)
[2017-08-23] MEDS ORDERED: ACETAMINOPHEN 500 MG TAB PO PRN (11:00)
--- NOTE | 2017-08-23 11:10 | DNPDOC ---
[facility] Delivery Note Delivery Note DATE OF DELIVERY: [id number] @ 1041 PREDELIVERY DIAGNOSIS: 38+1 wks POST DELIVERY DIAGNOSIS: Delivered. PROCEDURE: SPRUE KNOCKER: Allegra Ruiz CNM ANESTHESIA: epidural ESTIMATED BLOOD LOSS: 250 mL. FINDINGS: 7 pound 10 ounce female infant, Score 8/9 DELIVERY SUMMARY: Patient is a 27-year-old G4 now P3013 who was admitted to labor and delivery for active labor. Progressed to c/c/+1 with a strong desire to push with epidural infusing. Head presented direct OA. No nuchal cord noted. Anterior shoulder (R) delivered with gentle downward guidance, posterior shoulder and corpus followed with ease. Infant placed on mother's lower abdomen d/t short cord for warmth and drying. Vigorous cry noted within the first minute of life. Pitocin started with delivery of . Placenta delivered intact with 3 vessel cord approx 5 min later. Perineum inspected for lacerations. No lacerations noted. Mother and infant are doing well and remain in room bonding. Anticipate routine PP course. EBL-250 ml. WT-3460 grams, 7 lbs 10 oz APGARS- 8/9 Delivery Provider-Allegra Ruiz CNM WILSON, KELLI C. CNM Aug 23, 2017 11:10
[2017-08-23 11:14] LABS: ALT/SGPT 9 U/L (12-78); AST/SGOT 15 U/L (7-37)
[2017-08-24 06:28] VITALS: BP 132/71
[2017-08-24] MEDS: PRENATAL VITAMINS CHEWABLE TABLET PO SCH (09:04)
[2017-08-24] MEDS ORDERED: COLA100C5 PO (11:10)
[2017-08-24] MEDS ORDERED: MOTR200T44 PO (11:10)
[2017-08-24] MEDS ORDERED: ACET50TA PO (11:10)
== END 2017-08-24 13:10 | disposition home or self-care (01) | DRG 775 ==
LOC: M LDO 07:51 → M LDI 08:30 → M OBS 12:15
PROVIDERS: ADMIT Midwife; ATTEND Midwife
PROC: 10E0XZZ Delivery of Products of Conception, External Approach (ICD-10-PCS; principal; 2017-08-23)
DX: O80 Encounter for full-term uncomplicated delivery (principal); Z37.0 Single live birth; Z3A.38 38 weeks gestation of pregnancy; Z88.5 Allergy status to narcotic agent; Z88.0 Allergy status to penicillin; Z79.899 Other long term (current) drug therapy